=== PATIENT | male | born 1965 | race Two or more races ===

== ENCOUNTER 2022-03-23 07:27 | Day surgery (SDC) | payer MEDICAID ==
[~2022-03-23] VITALS: Ht 162.6 cm; Wt 109.8 kg
[2022-03-23] VITALS (9 sets, daily range): BP systolic 104–127; BP diastolic 77–95
[~2022-03-23 07:27] MED LIST: ASPI-543 PO; ATOR40TA52 PO; LISI-716 PO; METO-158 PO; METO25TA5 PO; NITR0.4S29 SL; OME20T PO; RANO500T2 PO; TICA1TAB PO
[2022-03-23] MEDS ORDERED: LIDOCAINE 2%HCL (LOCAL ANESTH.) INJ 20ML MDV ONE (07:58)
[2022-03-23] MEDS ORDERED: IODIXANOL 320MG/ML 100ML BTL IV ONE ×2 (07:58→08:50)
[2022-03-23] MEDS ORDERED: fentaNYL CITRATE 100 MCG/2 ML VL ONE (08:13)
[2022-03-23] MEDS ORDERED: ANGIOMAX 250 MG VIAL IV ONE (08:13)
[2022-03-23] MEDS ORDERED: MIDAZOLAM HCL 2MG/2ML 2ml VIAL (1mg/ml) ONE (08:14)
[2022-03-23] MEDS ORDERED: SODIUM CHL 0.9% 0 ML ONE (08:14)
[2022-03-23] MEDS ORDERED: HEPARIN SODIUM (PORCINE) 5000 UNITS/ML 1ML VIAL ONE (08:15)
[2022-03-23] MEDS ORDERED: VERAPAMIL 2.5MG/ML INJ 2ML VIAL IV ONE (08:17)
== END 2022-03-23 11:20 | disposition home or self-care (01) ==
LOC: CATH 07:27
PROVIDERS: ATTEND Internal Medicine Cardiovascular Disease
DX: I25.10 Atherosclerotic heart disease of native coronary artery without angina pectoris (principal); I10 Essential (primary) hypertension; E78.2 Mixed hyperlipidemia; Z95.5 Presence of coronary angioplasty implant and graft; E78.5 Hyperlipidemia, unspecified; E66.9 Obesity, unspecified; I25.2 Old myocardial infarction; Z79.899 Other long term (current) drug therapy; Z20.822 Contact with and (suspected) exposure to COVID-19
CPT/HCPCS: 93458; C1769; C1887; C1894; J1644; J2250; J3010; Q9967; U0003; 99152